=== PATIENT | female | born 1950 | race Caucasian/White ===

== ENCOUNTER 2017-01-07 13:19 | Emergency (ER) | payer MEDICARE, OTHER ==
[~2017-01-07] VITALS: Ht 167.6 cm; Wt 55.9 kg
[2017-01-07] MEDS ORDERED: OXYC10 PO (13:30)
[2017-01-07] MEDS ORDERED: PANT40TA25 PO (13:30)
[2017-01-07] MEDS ORDERED: ONDA4 PO (13:30)
[2017-01-07] MEDS ORDERED: LORazepam 2 MG TABLET PO ONE (15:00)
[2017-01-07] MEDS ORDERED: OxyCODONE HCL/ACETAMINOPHEN 5-325 MG TABLET PO ONE (15:15)
[2017-01-07] MEDS ORDERED: ALTEPLASE 2 MG/VIAL IVCATH ONE (15:45)
[2017-01-07] MEDS ORDERED: LIDOCAINE HCL/PF 1% 30 ML VIAL INJ ONE (17:00)
[2017-01-07 17:56] VITALS: BP 124/79
== END 2017-01-07 18:03 | disposition home or self-care (01) ==
LOC: EMS 13:22
DX: R18.0 Malignant ascites (principal); Z88.0 Allergy status to penicillin
CPT/HCPCS: 36245; 36561; 76937; 76942; 99284; J2997; J3490